=== PATIENT | female | born 1960 | race Caucasian/White ===

== ENCOUNTER 2025-07-14 20:01 | Emergency (ER) | payer MEDICAID ==
[~2025-07-14] VITALS: Ht 160 cm; Wt 100.0 kg
[2025-07-14 20:06] VITALS: O2SAT 97
[2025-07-14 20:42] LABS: BASOPHILS % 0.2 % (0.0-2.0); EOSINOPHILS % 0.1 % (0.0-5.0); HEMATOCRIT. 35.9 % (36.0-48.0); HEMOGLOBIN. 12.1 g/dL (12.0-16.0); LYMPHOCYTES % 8.8 % (20.0-50.0); MEAN PLATELET VOLUME 9.7 fl (7.4-10.4); MONOCYTES % 2.8 % (2.0-8.0); NEUTROPHILS % 88.1 % (40.0-76.0); PLATELET 202 x1000/uL (130-400); RED BLOOD CELL COUNT 4.17 mill/uL (4.2-5.4); RED CELL DISTRIBUTION WIDTH 13.7 % (11.6-14.6)
[2025-07-14] MEDS: MORPHINE SULFATE 2 MG/ML INJ (NOT FOR IM USE) IV ONE (20:49)
[2025-07-14] MEDS: PANTOPRAZOLE SODIUM 40 MG/VIAL IV ONE (20:49)
[2025-07-14] MEDS: ONDANSETRON HCL 4MG/2ML INJ IV ONE (20:49)
[2025-07-14] MEDS: SODIUM CHLORIDE 0.9% 1,000 ML IV ONE (20:50)
[2025-07-14 20:51] LABS: INR 1.1
[2025-07-14 20:56] LABS: CREATININE 1.0 mg/dL (0.6-1.0)
[2025-07-14 20:57] LABS: UREA NITROGEN BLOOD 17 mg/dL (9-23)
[2025-07-14 20:58] LABS: ASPARTATE AMINOTRANSFERASE 38 IU/L (<34); TROPONIN I HIGH SENSITIVITY < 4 ng/L (3.0-34)
[2025-07-14 20:59] LABS: BILIRUBIN DIRECT 0.2 mg/dL (<=3.0); BILIRUBIN TOTAL 0.6 mg/dL (0.1-1.0); PROTEIN TOTAL 7.0 g/dL (6.0-8.3)
[2025-07-14] MEDS: POTASSIUM CHLORIDE 20MEQ TABLET SR PO ONE (22:07)
[2025-07-14 22:11] LABS: CLARITY URINE CLEAR (CLEAR); COLOR URINE YELLOW (YELLOW); GLUCOSE URINE NEGATIVE (NEGATIVE); KETONES URINE NEGATIVE (NEGATIVE); LEUKOCYTE ESTERASE URINE NEGATIVE (NEGATIVE); NITRITE URINE NEGATIVE (NEGATIVE); OCCULT BLOOD URINE NEGATIVE (NEGATIVE); PH URINE 7.0 (4.5-8.0); PROTEIN URINE NEGATIVE (NEGATIVE); SPECIFIC GRAVITY URINE 1.013 (1.005-1.030); UROBILINOGEN URINE 1.0 E.U./dL (0.2-1.0)
[2025-07-14] MEDS: KETOROLAC 30MG/ML VIAL IV ONE (23:36)
[2025-07-15 00:20] LABS: TROPONIN I HIGH SENSITIVITY < 4 ng/L (3.0-34)
[2025-07-15 00:50] VITALS: BP 102/59; PULSE 68; RESP 15; TEMP 36.7; O2SAT 100
== END 2025-07-15 00:55 | disposition home or self-care (01) ==
LOC: ER 20:01
DX: R51.9 Headache, unspecified (principal); E87.6 Hypokalemia; R06.02 Shortness of breath; E11.9 Type 2 diabetes mellitus without complications; I10 Essential (primary) hypertension; Z79.4 Long term (current) use of insulin; Z88.0 Allergy status to penicillin
CPT/HCPCS: 99285; 96374; 96375; 70450; 76705; 71045; 80076; 80048; 81003; 83880; 83690; 83735; 85025; 85610; 84484; 36415; J1885; J2405; J2470; J2270; J7030